=== PATIENT | female | born 1950 | race Caucasian/White ===

== ENCOUNTER 2016-07-10 22:05 | Emergency (ER) | payer OTHER ==
[~2016-07-10] VITALS: Ht 165.1 cm; Wt 106.6 kg
[~2016-07-10 22:05] MED LIST: ACID CONTROL150 MG PO; ADULT LOW DOSE81 M1 PO; ALBUTEROL SULF8.5 GM IH; ALPRAZOLAM0.25 MG PO; CARDIZEM30 MG PO; CLEOCIN300 MG PO; DILTIA XT240 MG; DILTIAZEM 24HR240 MG PO; FLONASE16 G1; FLOVENT 11120 INHALA IH; FLOVENT 22120 INHALA; FLOVENT 22120 INHALA IH; Flovent 110 mcg IH; HYDROCHLOROTHIA25 MG PO; HYDROCODON-ACE1 EAC7 PO; HYDROCODONE-AP1 EAC9; INHALER; LEVOFLOXACIN750 MG PO; NOHOMEMEDS; OXYCODONE HCL10 MG PO; OXYCODONE HCL5 MG PO; PRADAXA150 MG; PRADAXA150 MG PO; PREDNISONE10 MG PO; Pradaxa PO; Proventil,Ventolin H IH; RANITIDINE HCL150 M1 PO; RANITIDINE HCL150 MG; RANITIDINE HCL150 MG PO; SIMVASTATIN10 MG PO; SIMVASTATIN20 MG PO; SPIRIVA1 INHALATI IH; TESSALON PERLE100 MG PO; VALIUM2 MG PO; VENTOLIN HFA18 GM IH; VICODIN,LORT1 TABLET PO; Vicodin,Norco 5/325 PO; XANAX0.25 MG; XANAX0.25 MG PO; Xanax PO; ZOCOR10 MG PO; ZOCOR20 MG PO; Zocor PO; oxyCODONE PO; simvastatin
[2016-07-11 00:06] VITALS: BP 148/76
== END 2016-07-11 00:29 | disposition home or self-care (01) ==
LOC: EME 22:05
PROC: 3E0T3BZ Introduction of Anesthetic Agent into Peripheral Nerves and Plexi, Percutaneous Approach (ICD-10-PCS; principal; 2016-07-10)
DX: K91.840 Postprocedural hemorrhage of a digestive system organ or structure following a digestive system procedure (principal); Z79.01 Long term (current) use of anticoagulants; Y83.8 Other surgical procedures as the cause of abnormal reaction of the patient, or of later complication, without mention of misadventure at the time of the procedure; E78.5 Hyperlipidemia, unspecified; I10 Essential (primary) hypertension; J44.9 Chronic obstructive pulmonary disease, unspecified; Z88.6 Allergy status to analgesic agent
CPT/HCPCS: 99281; 99283

== ENCOUNTER 2017-07-25 07:24 | Inpatient (IN) | payer OTHER ==
[~2017-07-25] VITALS: Ht 165.1 cm; Wt 110.3 kg
[~2017-07-25 07:24] MED LIST changes: +PRAVASTATIN SOD10 MG PO; -SIMVASTATIN20 MG PO
[2017-07-25 07:50] LABS: HEMATOCRIT 43.4 % (36.0-46.0); HEMOGLOBIN 14.5 G/DL (11.9-15.5); MCH 29.4 PG (29.0-34.0); MCHC 33.4 G/DL (30.0-36.0); PLATELET COUNT 259 K/uL (156-360); RBC DIS.WIDTH-CV 14.7 % (11.8-14.6); RBC DIS.WIDTH-SD 47.5 % (39-53); RED BLOOD COUNT 4.93 M/uL (3.80-5.20); WHITE BLOOD COUNT 10.3 K/uL (4.1-10.2)
[2017-07-25 07:59] LABS: CHLORIDE 100 mEq/L (99-109); POTASSIUM 4.4 mEq/L (3.7-5.4); SODIUM 139 mEq/L (136-147)
[2017-07-25 08:01] LABS: GLUCOSE 131 mg/dL (70-99)
[2017-07-25 08:05] LABS: CREATININE 0.8 mg/dL (0.6-1.3); GFR ESTIMATE (CALCULATED) > 59 mL/min/
[2017-07-25 08:06] LABS: UREA NITROGEN (BUN) 15 mg/dL (9-23)
[2017-07-25 08:11] LABS: TROP-I INTERPRETATION NEGATIVE; TROPONIN-I < 0.01 ng/mL (0.0-0.30)
[2017-07-25] MEDS ORDERED: ONDANSETRON HCL4 MG PO (09:04)
[2017-07-25] MEDS ORDERED: LISINOPRIL5 MG PO (09:04)
[2017-07-25] MEDS ORDERED: BREO ELLIPTA I1 EACH IH (09:04)
[2017-07-25] MEDS ORDERED: TYLENOL REGULA325 MG PO (09:04)
[2017-07-25] MEDS ORDERED: HYDROXYZINE HCL25 MG PO (09:05)
[2017-07-25] MEDS ORDERED: TRAMADOL HCL50 MG PO (09:06)
[2017-07-25 11:47] VITALS: BP 128/59
[2017-07-25 15:46] VITALS: BP 108/59
[2017-07-25 18:18] LABS: TROP-I INTERPRETATION NEGATIVE; TROPONIN-I < 0.01 ng/mL (0.0-0.30)
[2017-07-25 19:00] VITALS: BP 114/60
[2017-07-26] VITALS (7 sets, daily range): BP systolic 103–142; BP diastolic 52–67
[2017-07-26 06:42] LABS: TROP-I INTERPRETATION NEGATIVE; TROPONIN-I < 0.01 ng/mL (0.0-0.30)
[2017-07-26 06:50] LABS: ALBUMIN 4.1 G/DL (3.2-4.8); ALKALINE PHOSPHATASE 79 IU/L (3-129); ALT (GPT) 12 IU/L (3-49); AST (GOT) 13 IU/L (2-34); CHLORIDE 100 MEQ/L (99-109); CREATININE 0.8 MG/DL (0.6-1.3); GFR ESTIMATE (CALCULATED) > 59 mL/min/; GLUCOSE 127 mg/dL (70-99); POTASSIUM 4.3 MEQ/L (3.7-5.4); SODIUM 141 MEQ/L (136-147); TOTAL BILIRUBIN 0.6 MG/DL (0.0-1.0); TOTAL PROTEIN 6.4 G/DL (6.4-8.3); UREA NITROGEN (BUN) 18 mg/dL (9-23)
[2017-07-26 18:29] LABS: TROP-I INTERPRETATION NEGATIVE; TROPONIN-I < 0.01 ng/mL (0.0-0.30)
[2017-07-27 05:02] VITALS: BP 112/59
[2017-07-27 07:31] VITALS: BP 126/73
[2017-07-27 12:05] VITALS: BP 131/81
== END 2017-07-27 14:58 | disposition home or self-care (01) | DRG 204 ==
LOC: EME 07:24 → EDOF 08:58 → 4SOUTH 08:58 → EDOF 08:58 → ENRESERV 09:05 → 4SOUTH 11:35
PROVIDERS: Hospitalist
DX: R06.02 Shortness of breath (principal); R09.02 Hypoxemia; I48.92 Unspecified atrial flutter; I48.91 Unspecified atrial fibrillation; I27.20 Pulmonary hypertension, unspecified; J44.9 Chronic obstructive pulmonary disease, unspecified; R07.9 Chest pain, unspecified; I10 Essential (primary) hypertension; E78.5 Hyperlipidemia, unspecified; K21.9 Gastro-esophageal reflux disease without esophagitis; Z95.1 Presence of aortocoronary bypass graft; Z79.02 Long term (current) use of antithrombotics/antiplatelets; Z87.74 Personal history of (corrected) congenital malformations of heart and circulatory system; Z85.42 Personal history of malignant neoplasm of other parts of uterus; Z87.891 Personal history of nicotine dependence
CPT/HCPCS: 71046; 71275; 80048; 80053; 83880; 84484; 85027; 93005; 94640; 94640 76; 94799; 99202; 99281; 99285; G0378; J1940; J7512